=== PATIENT | male | born 1970 | race African-American/Black ===

== ENCOUNTER 2016-12-21 12:35 | Day surgery (SDC) | payer SELFPAY ==
[2016-12-19 11:22] LABS: HEMATOCRIT 44.9 % (40.0-51.0); HEMOGLOBIN 15.2 g/dL (13.6-17.8)
[~2016-12-21] VITALS: Ht 180.3 cm; Wt 80.0 kg
[~2016-12-21 12:35] MED LIST: ALEVE220 MG PO; BACTRIM DS1 TAB PO; GOODY'S EX-STR1 EAC1 PO; METHOC500B PO; NAP375 PO; NORCO1 TA1 PO
== END 2016-12-21 17:09 | disposition home or self-care (01) ==
LOC: IMGHOLD 12:35
PROVIDERS: Orthopaedic Surgery
DX: M51.24 Other intervertebral disc displacement, thoracic region (principal); I10 Essential (primary) hypertension; G25.81 Restless legs syndrome; Z87.891 Personal history of nicotine dependence
CPT/HCPCS: 72146; 85014; 85018; A9270-GY; J2250; J3010